=== PATIENT | female | born 1980 | race Caucasian/White ===

== ENCOUNTER 2021-05-13 16:45 | Emergency (ER) | payer BC ==
[~2021-05-13] VITALS: Ht 172.7 cm; Wt 52.3 kg
--- NOTE | 2021-05-13 17:01 | PHYS DOC ---
Adult General Chief Complaint Chief Complaint: FEVER HPI HPI Patient is a 40-year-old female presents emergency department concerning body aches with fever and chills since this past Saturday, patient also reports a nonproductive cough with sore throat for the past 2 days, reports she did not take her Depakote, Lamictal, and alprazolam for the last 2 days because she did not feel well enough to take pills, states she did take them last night though. Patient denies abdominal pain, nausea, vomiting, diarrhea, denies urinary pressure, increased frequency, urinary burning or STI concerns. Patient denies chest pain or chest congestion or nasal congestion. Patient states she has not received the COVID-19 vaccination series or flu shot for this year. Denies being a cigarette smoker, alcohol drinker, denies illicit drug use. Patient reports her last menstrual cycle was 2 weeks ago with normal duration of flow. (RONALD STEVENSON APRN) Review of Systems Review of Systems 14 body systems of review of systems have been reviewed. See HPI for pertinent positives and negative responses, otherwise all other systems are negative, nonp ertinent or noncontributory. Constitutional: Negative except as outlined in HPI above. Skin: Negative except as outlined in HPI above. Eyes: Negative except as outlined in HPI above. HENT: Negative except as outlined in HPI above. Respiratory: Negative except as outlined in HPI above. Cardiovascular: Negative except as outlined in HPI above. GI: Negative except as outlined in HPI above. : Negative except as outlined in HPI above. Musculoskeletal: Negative except as outlined in HPI above. Integument: Negative except as outlined in HPI above. Neurologic: Negative except as outlined in HPI above. Endocrine: Negative except as outlined in HPI above. Lymphatic: Negative except as outlined in HPI above. Psychiatric: Negative except as outlined in HPI above. (RONALD STEVENSON APRN) Physical Exam Physical Exam Constitutional: Well developed, well nourished, no acute distress, non-toxic appearance. 41-year-old female in no apparent distress. HENT: Normocephalic, atraumatic. Eyes: Conjunctiva normal, no discharge. Neck: Normal range of motion, no stridor. Cardiovascular: No cyanosis appreciated, distal cap refill less than 2 seconds. Lungs & Thorax: Patient is in no respiratory distress, no audible adventitious lung sounds appreciated. Abdomen: Nontender, no abnormalities noted. Skin: Warm, dry, no erythema, no rash. Back: No tenderness, no deformities. Extremities: No tenderness, no cyanosis, no clubbing, ROM intact, no edema. Neurologic: Alert and oriented X 3, normal motor function, normal sensory function, no focal deficits noted. Psychologic: Affect normal, judgement normal, mood normal. (RONALD STEVENSON APRN) EKG EKG [] (RONALD STEVENSON APRN) Radiology/Procedures Radiology/Procedures PATIENT: DAISY GARCÍA ACCOUNT: [id number] : 1980 LOCATION: ER AGE: 40 SEX: F EXAM STATUS: REG ER ORD. PHYSICIAN: RONALD STEVENSON APRN REASON: Need lateral view only, AP view previously completed PROCEDURE: CHEST AP ONLY EXAM: CHEST ONE VIEW. HISTORY: Cough, lateral view requested. COMPARISON: 05/13/2021. FINDINGS: A frontal view of the chest is obtained. There are no confluent infiltrates. There is no pneumothorax or pleural effusion. The heart is not enlarged. IMPRESSION: 1. No confluent infiltrates. Electronically signed by: Ny Hdez MD (05/13/2021 7:28 PM) [facility] DICTATED AND SIGNED BY: CONSTANTIN HDEZ MD DATE: 05/13/211926 CC: RONALD STEVENSON APRN; DARLIN HERNÁNDEZ MD ~MTH0 0 PATIENT: DAISY GARCÍA ACCOUNT: [id number] : 1980 LOCATION: ER AGE: 40 SEX: F EXAM STATUS: REG ER ORD. PHYSICIAN: RONALD STEVENSON APRN REASON: Cough PROCEDURE: CHEST AP ONLY EXAM: Chest, single view. HISTORY: Cough. COMPARISON: None. FINDINGS: A frontal view of the chest is obtained. There is increased opacity overlying the bilateral lower thorax. There is no consolidation, pleural effusion or pneumothorax. The heart is normal in size. IMPRESSION: Slight symmetric increased opacification of the lower thorax. This is greater than expected for artifact due to overlying soft tissues. This may be due to interstitial infiltrate. A lateral radiograph may be useful for confirmation. Electronically signed by: Darlin Cantu MD (05/13/2021 5:42 PM) [id number] (RONALD STEVENSON APRN) Heart Score C/O Chest Pain: No Risk Factors: Risk Factors: DM, Current or recent (<one month) smoker, HTN, HLP, family history of CAD, obesity. Risk Scores: Risk Factors: DM, Current or recent (<one month) smoker, HTN, HLP, family history of CAD, obesity. (RONALD STEVENSON APRN) Course & Med Decision Making Course & Med Decision Making Pertinent Labs and Imaging studies reviewed. (See chart for details) 38-year-old female, vital signs reviewed, presents emerged from concerning fever chills body aches since this past Saturday ago. Physical examination concerning for viral syndrome, will order flu swab, COVID-19 testing, rapid strep for sore throat complaint. Radiologist interpretation concerned about AP chest x-ray view requested lateral view, lateral view confirmed chest x-ray negative for acute findings. Discussed lab results with patient, strep test negative, flu test negative, COVID-19 test pending, discussed with patient equivocal low potassium and eating potassium rich foods or potassium supplement at home, strict follow-up with primary care this week, return to ER precautions and concerns, patient gave alyce bal understanding of and is amenable to ED discharge planning, diagnosis viral syndrome, PUI. Discussed with the patient all findings and diagnostic testing as well as the need to follow-up with their primary care provider for further evaluation and treatment or return to the ED if any new or worsening symptoms. Strict return precautions were also discussed at length, the patient voiced understanding and agreement with the discharge planning. The patient was nontoxic in appearance, in no apparent distress, and hemodynamically stable at the time of disposition. (RONALD STEVENSON APRN) Course & Med Decision Making Did not see or evaluate patient. 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 (ISAIAH KELLER MD) Dragon Disclaimer Dragon Disclaimer This electronic medical record was generated, in whole or in part, using a voice recognition dictation system. (RONALD STEVENSON APRN) Departure Departure: Impression: Primary Impression: Viral syndrome Additional Impression: Person under investigation for COVID-19 Disposition: HOME / SELF CARE / HOMELESS Condition: GOOD Referrals: DARLIN HERNÁNDEZ MD (PCP) Patient Instructions: Viral Syndrome Additional Instructions: You were seen in the emergency department for body aches and multiple symptoms that are consistent with a viral syndrome. You had reported a sore throat. A rapid flu and rapid strep test was done today in the emergency department that were negative for concerning findings. Your lab work did not show any concerning findings that would warrant admission to the hospital today. As we discussed your potassium was slightly low, please consider eating potassium rich foods or taking a potassium supplement at home. As we discussed at length, please continue to take your prescribed medications as directed. A COVID-19 test was performed today in the emergency department, your lab results are pending and should be available within the next 48 hours. If positive you should be contacted by a hospital retention representative to review your positive COVID- 19 lab. I have attached information regarding COVID-19 quarantine to this document, please review. As we discussed, please follow-up with your primary care physician soon. Thank you for visiting our Emergency Department. It was a pleasure taking care of you today in the emergency department and we appreciate you trusting us with your care. If any additional problems come up don't hesitate to return to visit us. Please follow up with your primary care provider so they can plan additional care if needed and know about the problem that you had. If symptoms worsen come back to the Emergency Department. Any concerning symptoms that start such as chest pain, shortness of air, weakness or numbness on one side of the body, running high fevers or any other concerning symptoms return to the ER. You may take [id number] Tylenol and/or Motrin for on going or returning fevers or chills or body aches. As we discussed please continue to drink plenty of fluids to help prevent dehydration and minimize symptoms. You have been tested for or diagnosed with COVID-19. It is an infection caused by a new type of coronavirus. COVID-19 will cause cold-like or mild flu symptoms in most. It can cause more severe symptoms like problems breathing in some. There is no treatment for COVID-19. The body will clear the infection over time. Self-care will help to ease discomfort. Steps to Take: Self-Care Rest as needed. Healthy habits may help you feel better. Steps include: Choose healthy foods including fruits and vegetables. Drink water throughout the day. Get plenty of sleep each night. If you smoke, try to quit. It may ease breathing. Avoid alcohol. Keep Others Healthy The virus can spread to others. Droplets are released every time you sneeze or cough. The droplets can get into the mouth, nose, or eyes of people near you and lead to infection. To lower the chances of spreading COVID-19 to others: Stay at home until your doctor has said it is safe to leave. If you tested positive this will mean staying isolated until both of the following are true: At least 7 days have passed since the start of illness. You are free of fever for at least 72 hours without the use of medicine. During this time: - Avoid public areas, events, or transportation. Do not return to work or school until your doctor has said it is safe to do so. - Call ahead if you need to go to a medical center. Let them know you may have COVID-19. It will help them guide you where to go. They may also ask you to wear a facemask when you come to the office. - If you call for emergency medical services, let them know you may have COVID- 19. While at home: - Try to avoid close contact with others. Stay about 6 feet away. - If possible, spend most of your time in a separate room from others. - Use a face mask if you will be in close contact with others such as sharing a room or vehicle. - Have someone wipe down common surfaces in the home. Use household certified anesthesiologist assistant every day on areas like doorknobs, counters, or sinks. - Cough or sneeze into a tissue. Throw the tissue away right after use. If a tissue is not available, cough or sneeze into your elbow. - Wash your hands often. Wash them after sneezing or coughing. Use soap and water and wash for at least 20 seconds. Alcohol based hand railroad car cleaner can be used if soap and water is not available. - Do not prepare food for others. Avoid sharing personal items like forks, spoons, or toothbrushes. - Avoid close contact with pets while you are sick. There is no evidence of the virus passing to pets. This is a safety step until more is known about this virus. Isolation can be frustrating. Social interaction can help. Keep in touch with friends and family through phone and tech options. You can still interact with others in you r home, just keep a safe distance of about 6 feet. Follow-up: Your doctors office will check in with you to see if there are any changes in your health. You may be asked to keep track of symptoms to share with them. They will also let you know when you are clear to be in public again. Problems to Look Out For: Contact your doctor if your recovery is not going as you expect. Get emergency care if you have problems such as: - Trouble breathing - Nonstop chest pain or pressure - Changes in awareness, confusion, or problems waking - Lips or face have bluish color - Worsening of symptoms If you think you have an emergency, call for emergency medical services right away. As taken from [facility] EMERGENCY DEPARTMENT GENERAL DISCHARGE INSTRUCTIONS Thank you for coming to [facility] (ED) today and trusting us with you care. We trust that you had a positivie experience in our Emergency Department. If you wish to speak to the department management, you may call the director at . YOUR FOLLOW UP INSTRUCTIONS ARE FOLLOWS: 1. Do you have a private Doctor? If you do not have a private doctor, please ask for a resource list of physicians or clinics that may be able to assist you with follow up care. 2. The Emergency Physician has interpreted your x-rays. The X-Ray specialist will also review them. If there is a change in the findings, you will be notified in 48 hours when at all possible. 3. A lab test or culture has been done, your results will be reviewed and you will be notified if you need a change in treatment. ADDITIONAL INSTRUCTIONS AND INFORMATION: 1. Your care today has been supervised by a physician who is specially trained in emergency care. Many problems require more than one evaluation for a complete diagnosis and treatment. We recommend that you schedule your follow up appointment as recommended to ensure complete treatment of you illness or injury. If you are unable to obtain follow up care and continue to have a problem, or if your condition worsens, we recommend that you return to the ED. 2. We are not able to safely determine your condition over the phone nor are we able to give sound medical advice over the phone. For these safety reasons, if you call for medical advice we will ask you to come to the ED for further evaluation. 3. If you have any questions regarding these discharge instructions please call the ED at [phone]. SAFETY INFORMATION: In the interest of safety, wellness, and injury prevention; we encourage you to wear your sealbelt, if you smoke; quite smoking, and we encourage family to use a protective helmet for bicycling and other sporting events that present an increased risk for head injury. IF YOUR SYMPTOMS WORSEN OR NEW SYMPTOMS DEVELOP, OR YOU HAVE CONCERNS ABOUT YOUR CONDITION; OR IF YOUR CONDITION WORSENS WHILE YOU ARE WAITING FOR YOUR FOLLOW UP APPOINTMENT; EITHER CONTACT YOUR PRIMARY CARE DOCTOR, THE PHYSICIAN WHOSE NAME AND NUMBER YOU WERE GIVEN, OR RETURN TO THE ED IMMEDIATELY. Problem Qualifiers RONALD STEVENSON APRN May 13, 2021 17:01 ISAIAH KELLER MD May 13, 2021 21:52
--- NOTE | 2021-05-13 17:45 | RAD ---
EXAM: Chest, single view. HISTORY: Cough. COMPARISON: None. FINDINGS: A frontal view of the chest is obtained. There is increased opacity overlying the bilateral lower thorax. There is no consolidation, pleural effusion or pneumothorax. The heart is normal in si ze. IMPRESSION: Slight symmetric increased opacification of the lower thorax. This is greater than expect ed for artifact due to overlying soft tissues. This may be due to interstitial infiltrate. A lateral radiograph may be useful for confirmation. Electronically signed by: Darlin Cantu MD (05/13/2021 5:42 PM) [id number]
[2021-05-13 17:53] LABS: BASO % 0 % (0-3); EOS % 1 % (0-3); HEMATOCRIT 41.1 % (36.0-47.0); HEMOGLOBIN 13.9 g/dL (12.0-15.5); LYMPH # 1.1 x10^3/uL (1.0-4.8); LYMPH % 39 % (24-48); MEAN CORPUSCULAR HEMOGLOBIN 31 pg (25-35); MEAN CORPUSCULAR HGB CONC 34 g/dL (31-37); MEAN CORPUSCULAR VOLUME 91 fL (79-100); MONO # 0.4 x10^3/uL (0.0-1.1); MONO % 13 % (0-9); NEUT # 1.3 x10^3uL (1.8-7.7); NEUT % 47 % (31-73); PLATELET COUNT 176 x10^3/uL (140-400); RED BLOOD COUNT 4.54 x10^6/uL (3.50-5.40); RED CELL DISTRIBUTION WIDTH 13.3 % (11.5-14.5); WHITE BLOOD COUNT 2.7 x10^3/uL (4.0-11.0)
[2021-05-13 17:59] LABS: CALCIUM 8.7 mg/dL (8.5-10.1); CREATININE 1.1 mg/dL (0.6-1.0); GFR 54.5; POTASSIUM 3.1 mmol/L (3.5-5.1)
[2021-05-13] MEDS ORDERED: IV NORMAL SALINE 1,000ML 1,000 ML IV ONE (18:00)
[2021-05-13 18:09] LABS: INFLUENZA A PATIENT NEGATIVE (NEGATIVE); INFLUENZA B PATIENT NEGATIVE (NEGATIVE)
[2021-05-13 18:51] LABS: CLARITY,URINE HAZY; COLOR,URINE YELLOW
[2021-05-13 18:52] LABS: BACTERIA,URINE FEW /HPF (0-FEW); BILIRUBIN,URINE NEG (NEG); GLUCOSE,URINE NEG (NEG); NITRITE,URINE NEG (NEG); SQUAMOUS EPITHELIAL CELL,UR MOD /LPF; UROBILINOGEN,URINE 0.2 mg/dL (0.2 mg/dL)
--- NOTE | 2021-05-13 19:31 | RAD ---
EXAM: CHEST ONE VIEW. HISTORY: Cough, lateral view requested. COMPARISON: 05/13/2021. FINDINGS: A frontal view of the chest is obtained. There are no confluent infiltrates. There is no pneumothorax or pleural effusion. The heart is not en larged. IMPRESSION: 1. No confluent infiltrates. Electronically signed by: Ny Hdez MD (05/13/2021 7:28 PM) [facility]
[2021-05-13 20:03] VITALS: BP 101/42
== END 2021-05-13 20:05 | disposition home or self-care (01) ==
LOC: ER 16:45
DX: U07.1 COVID-19 (principal); B34.9 Viral infection, unspecified
CPT/HCPCS: 71045; 80048; 81001; 81025; 85025; 87070; 87804; 87880; 96360; 99285; C9803; J7030; U0003